=== PATIENT | female | born 1965 | race Caucasian/White ===

== ENCOUNTER → 2017-09-07 | Outpatient (CLI) | payer BC ==
[~2017-09-07] MED LIST: ASPIRIN E.C. 8181 MG PO; ORTHO MICRONO0.35 MG; ORTHO MICRONO0.35 MG PO; PRINIVIL40 MG PO
== END ==
LOC: MC.RAD 08:38
DX: Z12.31 Encounter for screening mammogram for malignant neoplasm of breast (principal)

== ENCOUNTER → 2018-12-06 | Outpatient (CLI) | payer BC | LOC: COL.RAD 12-01 08:00 | DX: R93.2 Abnormal findings on diagnostic imaging of liver and biliary tract (principal); R10.2 Pelvic and perineal pain; R10.31 Right lower quadrant pain | CPT/HCPCS: Q9967 ==

== ENCOUNTER → 2018-12-07 | Outpatient (CLI) | payer BC | LOC: COL.RAD 08:53 | DX: R93.5 Abnormal findings on diagnostic imaging of other abdominal regions, including retroperitoneum (principal); R10.31 Right lower quadrant pain ==